=== PATIENT | female | born 1930 | race Caucasian/White ===

== ENCOUNTER 2018-03-04 01:33 | Observation (INO) ==
[2018-03-04] MEDS ORDERED: Acetaminophen 500 MG Tablet PO PRN (08:37)
[2018-03-04] MEDS ORDERED: Morphine Inj 4 MG/ML Vial IV.PUSH PRN (08:37)
[2018-03-04] MEDS ORDERED: Dextrose 50% in Water 50 ML Vial IV.PUSH PRN (08:39)
[2018-03-04 10:04] LABS: Troponin I 0.06 ng/mL (0.02-0.05)
--- NOTE | 2018-03-04 10:46 | P.HP ---
History of Present Illness Primary Care Physician: BRET KIM Chief Complaint: Chest pain History of Present Illness: 87-year-old female with known history of hypertension, hyperlipidemia , coronary artery disease status post stenting, pacemaker, diabetes who presented to the hospital because of chest pain. Patient speaks Setswana with little Fijian. Information was taken from patient, using circular knitter, circular knitter by daughter. Last night the developed chest pain that was located on the left side of her chest and radiated underneath her breast and into her left arm. She had associated shortness of breath, because of those reasons her daughter brought her to the hospital for evaluation. Patient denied any nausea , vomiting, lightheadedness, dizziness, diaphoresis. Patient is followed by gas fitter helper in [place], Dr. Leach, patient denies any recent cardiac stress testing. She does have an appointment with her gas fitter helper next week. Patient was giving nebulizer treatments, Nitropaste with improvement of her presenting symptoms. Initial workup was unremarkable for negative cardiac enzymes. EKG shows pacer rhythm. Is recommended by the ER physician the patient be observed in the hospital for further evaluation and management. Presently the patient is asymptomatic. - Diagnosis (1) Chest pain Review of Systems All other systems reviewed negative except as stated in HPI Cardiovascular: Reports chest pain, Reports shortness of breath PMFSH - History History Provided By: Patient - Medical History Medical History: Medical History (Last Updated 03/04/18 @ 10:41 by DELIA Wick) Coronary artery disease Diabetes High cholesterol History of hysterectomy Hypertension Pacemaker - Surgical History Surgical History: Surgical History (Last Updated 03/04/18 @ 10:40 by DELIA Wick) History of coronary artery stent placement H/O discectomy - Family History Family History: Family History (Last Updated 03/04/18 @ 10:10 by DELIA Wick) Mother History of ovarian cancer - Tobacco History Second Hand Smoke Exposure: Yes Smoking Status: Never smoker - Alcohol History How Often Do You Have a Drink Containing Alcohol: Never - Substance Use History Substance History: No History of Abuse Medications and Allergies Active Medications: Active Medications Acetaminophen (Tylenol) 500 mg PO Q4H PRN PRN Reason: HEADACHE Hydrocodone Bitart/Acetaminophen ([place] 7.5/325) 1 tab PO Q4H PRN PRN Reason: PAIN SCALE 1 TO 7 Dextrose (D50w Vial) 50 ml IV.PUSH UNSCH PRN PRN Reason: PER HYPOGLYCEMIA PROTOCOL Glucagon (Glucagon Inj) 1 mg OTHER PRN PRN PRN Reason: for Hypoglycemia Protocol Insulin Aspart (Novolog Insulin Correctional Sugar Inj) 0 unit SQ ACHS TIKA; Protocol Morphine Sulfate (Morphine Inj) 2 mg IV.PUSH Q4H PRN PRN Reason: PAIN SCALE 8 TO 10 Nitroglycerin (Nitrostat Sl) 0.4 mg SL Q5M PRN PRN Reason: CHEST PAIN Sodium Chloride (Ns Flush) 2 ml IV.FLUSH BID TIKA Sodium Chloride (Ns Flush) 2 ml IV.FLUSH PRN PRN PRN Reason: FLUSH AFTER USING IV ACCESS Allergies Allergy/AdvReac Type Severity Reaction Status Date / Time No Known Allergies Allergy Verified 01/22/18 15:51 Home Medications Medication Instructions Recorded Confirmed Type atorvastatin 40 mg PO DAILY 01/22/18 03/04/18 History cholecalciferol (vitamin D3) 2,000 unit PO DAILY 01/22/18 03/04/18 History [Vitamin D3] glipizide 2.5 mg PO DAILY 01/22/18 03/04/18 History losartan 25 mg PO DAILY 01/22/18 03/04/18 History sotalol [Sotalol AF] 40 mg/m2 PO BID 01/22/18 03/04/18 History Exam Vital signs: Vital Signs 03/04/18 07:37 Temperature 96.5 F L Pulse Rate 60 Respiratory Rate 20 Blood Pressure 141/61 H Pulse Oximetry 99 Narrative: GENERAL: Well-developed, well-nourished, in no acute distress. alert and orientated HEENT: Head is normocephalic without any lesions or masses noted. Facial features are symmetric. Eyes: Pupils equal round reactive to light. Extraocular muscles are intact. Conjunctivae were clear. Oropharyngeal: Pharynx without any erythema edema. Tongue is midline without deviation. Buccal mucosa is moist without any masses or lesions NECK: Supple without any masses. Trachea midline no deviation. No JVD, no bruits are appreciated CARDIAC: Regular rhythm, regular rate. S1/S2 are heard. No murmurs gallops or rubs. Reproducible palpable tenderness noted on the left sternal border at the site that he states that she was experiencing pain LUNGS: Clear to auscultation bilaterally. No wheeze, rhonchi or rales. No use of accessory muscles on inspiration or expiration. ABDOMEN: Soft, nontender. Nondistended. Bowel sounds heard in all 4 quadrants. No organomegaly or masses. Negative rebound, negative guarding EXTREMITIES: No edema, pulses are equal bilaterally. No cyanosis or clubbing NEUROLOGY: Mood and affect appear appropriate. Cranial nerves II through XII grossly intact. Muscle strength 5/5 in upper and lower extremities bilaterally. Deep tendon reflexes are 2+ in upper and lower extremities bilaterally. Results - Labs Labs: Laboratory Results - last 24 hr 03/04/18 08:54 Total Creatine Kinase 99 Troponin I 0.06 H Caprini VTE Risk Assessment Caprini VTE Risk Assessment: Moderate/High Risk (score >= 2) Caprini Risk Assessment Model: Point Value = 1 Point Value = 2 Point Value = 3 Point Value = 5 Age 41-60 Minor surgery BMI > 25 kg/m2 Swollen legs Varicose veins or History of unexplained or recurrent spontaneous Oral contraceptives or hormone replacement Sepsis (< 1 month) Serious lung disease, including pneumonia (< 1 month) Abnormal pulmonary function Acute myocardial infarction Congestive heart failure (< 1 month) History of inflammatory bowel disease Medical patient at bed rest Age 61-74 Arthroscopic surgery Major open surgery (> 45 min) Laparoscopic surgery (> 45 min) Malignancy Confined to bed (> 72 hours) Immobilizing plaster cast Central venous access Age >= 75 History of VTE Family history of VTE Factor V Leiden Prothrombin [id number] Lupus anticoagulant Anticardiolipin antibodies Elevated serum homocysteine Heparin-induced thrombocytopenia Other congenital or acquired thrombophilia Stroke (< 1 month) Elective arthroplasty Hip, pelvis, or leg fracture Acute spinal cord injury (< 1 month) Prophylaxis Regimen: Total Risk Factor Score Risk Level Prophylaxis Regimen 0-1 Low Early ambulation 2 Moderate Order ONE of the following: *Sequential Compression Device (SCD) *Heparin 5000 units SQ BID 3-4 Higher Order ONE of the following medications: *Heparin 5000 units SQ TID *Enoxaparin/Lovenox 40 mg SQ daily (WT < 150 kg, CrCl > 30 mL/min) *Enoxaparin/Lovenox 30 mg SQ daily (WT < 150 kg, CrCl > 10-29 mL/min) *Enoxaparin/Lovenox 30 mg SQ BID (WT < 150 kg, CrCl > 30 mL/min) AND/OR *Sequential Compression Device (SCD) 5 or more Highest Order ONE of the following medications: *Heparin 5000 units SQ TID (Preferred with Epidurals) *Enoxaparin/Lovenox 40 mg SQ daily (WT < 150 kg, CrCl > 30 mL/min) *Enoxaparin/Lovenox 30 mg SQ daily (WT < 150 kg, CrCl > 10-29 mL/min) *Enoxaparin/Lovenox 30 mg SQ BID (WT < 150 kg, CrCl > 30 mL/min) AND *Sequential Compression Device (SCD) Assessment and Plan - Assessment (1) Chest pain Code(s): R07.9 - Chest pain, unspecified Status: Acute - Plan Chest pain -Patient with increased risk factors include age, hypertension, hyperlipidemia, coronary disease, diabetes -Cardiac enzymes were reviewed and did show a mild elevation to 0.06 after 7 hours -EKG was reviewed which does show pacemaker paced rhythm -Discussed with [facility] gas fitter helper Dr. Eckert, he is recommending myocardial perfusion study, if it is negative patient may be discharged, if positive the patient will require transfer for cardiac catheterization. -Myocardial perfusion study was performed and was low risk. A very subtle stress-induced defect in the extreme apex with associated focal hypokinesia was noted ejection fraction 51%. -Discussed with the [facility] gas fitter helper Dr. Eckert, reviewed patient' s history, presenting symptoms, laboratory studies, myocardial perfusion study. Dr. Eckert indicated that since the study was low risk and is a very small focal defect in the extreme apex with focal hypokinesia, he does not recommend any intervention at this time. Recommending continue medical management. Recommend patient follow-up with her gas fitter helper this week for further evaluation and recommendations. -Continue aspirin, Nitropaste, beta-celina, statin -Continue monitor telemetry Hypertension, hyperlipidemia, coronary disease -Home medication will be continued Diabetes -Accu-Cheks with sliding scale insulin DVT prevention -Sequential compression devices Discharge Planning: Discharge home in stable condition Activity: Ad tonya. Diet: Diabetic diet Medication per medication reconciliation Follow-up with primary medical doctor in 1 week
[2018-03-04] MEDS ORDERED: Aspirin 325 MG Tablet PO SCH (11:00)
[2018-03-04] MEDS ORDERED: Insulin NovoLOG Aspart Correctional Sugar Inj SQ SCH (12:00)
[2018-03-04 12:48] LABS: Troponin I 0.08 ng/mL (0.02-0.05)
[2018-03-04] MEDS ORDERED: Regadenoson Inj 0.4 MG/5 ML Syringe IV.PUSH ONE (14:39)
[2018-03-04 15:12] LABS: Chol/HDL Ratio 2.81 Ratio; HDL Cholesterol 60.7 mg/dL (40.0-60.0)
--- NOTE | 2018-03-04 15:17 | P.DCO ---
- Diagnosis (2) Chronic renal insufficiency - Home Health Nursing Order: Medical education, Signs/symptoms of disease process, Nursing assessment with vital signs - Smasher Hand Order: To evaluate: Living conditions/environment, Support services Order: To provide: Long range planning, Community services - Certification I have seen patient Sona Stein on 03/04/18. My clinical findings support the need for the requested home health care services because: Medication compliance is questionable, Limited ability to care for self I certify that my clinical findings support that this patient is homebound because: Unsteady gait/balance, Unsafe to leave home unassisted (2) Chronic renal insufficiency Qualifiers: Chronic kidney disease stage: unspecified stage Qualified Code(s): N18.9 - Chronic kidney disease, unspecified
--- NOTE | 2018-03-04 15:40 | NM ---
EXAM DATE: 03/04/2018 3:33 PM EDT AGE/SEX: 87 years / Female INDICATIONS:Angina. . Chest pain. CLINICAL DATA: This is the patient's initial encounter. Patient reports that signs and symptoms have been present for 1 day and indicates a pain score of 0/10. MEDICAL/SURGICAL HISTORY: Diabetes mellitus type II. Hypertension. Cardiovascular disease. An gioplasty. Pacemaker. Hysterectomy. COMPARISON: No prior exams available for comparison. DOSE: 8.1 mCi Tc 99m Myoview at rest 25.6 mCi [id number] at rest 0.4 mg Lexiscan STRESS SYMPTOMS: Headache. EJECTION FRACTION: 51 % TECHNIQUE: The patient underwent pharmacologic stress with infusion of prescribed dose. Continuous ECG tracing was monitored during stress. Gated SPECT imaging was performed after stress and conventi onal SPECT imaging was performed at rest. The examination was performed on a SPECT/CT scanner, both attenuation and non-corrected datasets were reviewed. FINDINGS: Distribution: The maximum perfused segment at stress is in the inferior wall. Perfusion Study: There is subtle focal perfusion defect in the apical wall. Gated Study: There is hypokinesia of the apex. No other significant wall motion abnormality. The ej ection fraction is calculated at 51%. RISK CATEGORY: Low (<1% Annual Motality Rate) CONCLUSION: 1. Subtle focal stress-induced perfusion defect at the extreme apex with associated focal hypokinesi a. 2. EF of 51%. Electronically signed by: Joe Rothman MD 03/04/2018 3:38 PM EDT
--- NOTE | 2018-03-04 15:44 | ECG ---
Date Performed: 03/04/2018 Time Performed: 11:54:41 PTAGE: 87 years EKG: ELECTRONIC ATRIAL PACEMAKER LEFT VENTRICULAR HYPERTROPHY AND ST-T CHANGE ABNORMAL ECG Since PREVIOUS TRACING , no significant change noted PREVIOUS TRACIN03/04/2018 09.02 DOCTOR: Ti Mac Interpretating Date/Time 03/04/2018 15:43:03
--- NOTE | 2018-03-04 15:44 | ECG ---
Date Performed: 03/04/2018 Time Performed: 09:02:15 PTAGE: 87 years EKG: ELECTRONIC ATRIAL PACEMAKER LEFT VENTRICULAR HYPERTROPHY AND ST-T CHANGE ABNORMAL ECG Domenic red to PREVIOUS TRACING , the patient now has atrial pacing at a heart rate of 60. Previous trac ing was at heart rate of 66 with apparently normal Sinus rhythm at that time. PREVIOUS TRACIN03/04/2018 01.52.03 DOCTOR: Ti Mac Interpretating Date/Time 03/04/2018 15:42:49
--- NOTE | 2018-03-05 14:34 | TR ---
Date Performed: 03/04/2018 Time Performed: 14:52:47 DOCTOR: Chapin Rubio DRUG LIST: CLINICAL HISTORY: REASON FOR TEST: REASON FOR ENDING: OBSERVATION: CONCLUSION: COMMENTS: Lexiscan stress test was performed under standard four minute protocol. Radionuclide was injected one minute prior to ending the test. ECG findings of LVH were present Nuclear imaging an d interpretation are pending.
== END 2018-03-04 19:00 | disposition home or self-care (01) ==
LOC: PHEDDLT 01:33 → PH3 01:33
PROVIDERS: ADMIT Family Medicine; ATTEND Family Medicine